=== PATIENT | male | born 1985 | race Two or more races ===

== ENCOUNTER 2024-03-23 22:38 | Emergency (ER) | payer OTHER ==
[~2024-03-23] VITALS: Ht 162.6 cm; Wt 77.1 kg
[2024-03-23] MEDS ORDERED: 0.9 % SODIUM CHLORIDE 1,000 ML IV ONE (23:15)
[2024-03-23 23:30] LABS: HEMATOCRIT 41.9 % (39.0-48.0); HEMOGLOBIN 14.1 g/dL (13-16.00); MEAN CELL VOLUME 85.7 fL (80.0-100.00); MEAN CORPUSCULAR HEMOGLOBIN 28.9 pg (27.00-32.0); MEAN CORPUSCULAR HGB CONC 33.7 g/dl (32.0-36.0); PLATELET COUNT 306 K/uL (150-450); RED BLOOD COUNT 4.88 M/uL (4.00-6.00); RED CELL DISTRIBUTION WIDTH 14.6 % (11.5-14.5)
[2024-03-23 23:54] LABS: CALCIUM 8.7 mg/dL (8.5-10.1); CREATININE SERUM 1.34 mg/dL (0.70-1.30); GFR 59.98; POTASSIUM 3.29 mEq/L (3.5-5.1)
== END 2024-03-24 02:49 | disposition home or self-care (01) ==
LOC: ER 22:38
PROVIDERS: General Practice
DX: R53.81 Other malaise (principal); F12.929 Cannabis use, unspecified with intoxication, unspecified